=== PATIENT | female | born 1930 | race Caucasian/White ===

== ENCOUNTER 2017-09-07 04:34 | Emergency (ER) | payer MEDICARE ==
[2016-03-17 14:30] VITALS: BMI 24.0
[~2017-09-07 04:34] MED LIST: ATIVAN1 MG PO; CATAPRES0.1 MG PO; CELEXA20 MG PO; DILANTIN100 MG PO; KEPPRA250 MG PO; METOPROLOL TAR100 M1 PO; NORVASC5 MG PO; ZANTAC150 MG PO; ZOFRAN4 MG PO
[2017-09-07 05:44] LABS: BASOPHILS 0.2 % (0-2); EOSINOPHILS 1.9 % (0-7); HEMOGLOBIN 12.3 g/dL (12-16); IMMATURE GRANULOCYTES 0.6 % (0-5); LYMPHOCYTES 33.5 % (15-50); MCH 31.5 pg (26.0-34.0); MCHC 34.2 g/dL (31.0-37.0); MCV 92.3 fL (80.0-100.0); MEAN PLATELET VOLUME 9.4 fL (7.4-10.4); NEUTROPHILS 53.8 % (40-80); PLATELET COUNT 155 10x3/uL (130-400); RDW 13.1 % (11.5-14.5); WBC 4.7 10x3/uL (4.8-10.8)
[2017-09-07 06:06] LABS: ALBUMIN 3.4 g/dL (3.4-5.0); ANION GAP 11.8 mmol/L (8-16); BILIRUBIN - TOTAL 0.11 mg/dL (0.2-1.3); CALCIUM 8.6 mg/dL (8.5-10.1); CARBON DIOXIDE 29.5 mmol/L (21.0-32.0); CREATININE - SERUM 0.8 mg/dL (0.6-1.3); PHENYTOIN (DILANTIN) 5.4 ug/mL (10.0-20.0); POTASSIUM - SERUM 4.3 mmol/L (3.5-5.1); PROTEIN - SERUM 6.8 g/dL (6.4-8.2)
== END 2017-09-07 06:18 | disposition home or self-care (01) ==
LOC: D.ER 04:34
PROVIDERS: Emergency Medicine
DX: H93.13 Tinnitus, bilateral (principal); I10 Essential (primary) hypertension; G40.909 Epilepsy, unspecified, not intractable, without status epilepticus

== ENCOUNTER 2018-10-13 21:17 | Inpatient (IN) | payer MEDICARE ==
[~2018-10-13] VITALS: Ht 152.4 cm; Wt 59.0 kg
[2018-10-13 22:28] LABS: BASOPHILS 0 % (0-2); EOSINOPHILS 0 % (0-7); HEMATOCRIT 38.7 % (36.0-48.0); HEMOGLOBIN 13.2 g/dL (12-16); IMMATURE GRANULOCYTES 0.3 % (0-5); LYMPHOCYTES 15.7 % (15-50); MCH 30.7 pg (26.0-34.0); MCHC 34.1 g/dL (31.0-37.0); MEAN PLATELET VOLUME 9.1 fL (7.4-10.4); MONOCYTES 4.4 % (2-11); NEUTROPHILS 79.6 % (40-80); RDW 13.5 % (11.5-14.5); WBC 12.6 10x3/uL (4.8-10.8)
[2018-10-13 22:42] LABS: ALBUMIN 4.2 g/dL (3.4-5.0); ALKALINE PHOSPHATASE 154 U/L (46-116); ALT (SGPT) 38 U/L (10-68); BILIRUBIN - TOTAL 0.66 mg/dL (0.2-1.3); CALC OSMOLALITY 281 mosm/kg (275-300); CALCIUM 9.4 mg/dL (8.5-10.1); CARBON DIOXIDE 25.4 mmol/L (21.0-32.0); CHLORIDE - SERUM 102 mmol/L (98-107); CREATININE - SERUM 1.1 mg/dL (0.6-1.3); GLUCOSE 116 mg/dL (74-106); POTASSIUM - SERUM 3.7 mmol/L (3.5-5.1); PROTEIN - SERUM 8.4 g/dL (6.4-8.2); SODIUM 140 mmol/L (136-145); UREA NITROGEN 19 mg/dL (7-18); eGFR NON AFRICAN AMERICAN 50 mL/min (90-120)
[2018-10-13 22:59] LABS: PLATELET COUNT 215 10x3/uL (130-400)
[2018-10-13 23:02] LABS: PHENYTOIN (DILANTIN) 3.5 ug/mL (10.0-20.0); PRO BNP 1175 pg/mL (0-450); THYROID STIMULATING HORMONE 2.01 uIU/mL (0.36-3.74); TROPONIN-I 0.024 ng/mL (0.000-0.060)
[2018-10-13 23:07] LABS: CREATINE KINASE 1570 UL (21-215)
[2018-10-13 23:09] LABS: CKMB 28.5 U/L (0.0-3.6)
[2018-10-14 01:04] VITALS: BP 120/56
--- NOTE | 2018-10-14 02:45 | NUR ---
PT RESTING IN BED. ALERT WITH SOME CONFUSION. PT STATES NO PROBLEMS AT THIS TIME. CRISTOBAL ALARM ON. CALL LIGHT IN REACH. WILL CONTINUE PLAN OF CARE.
[2018-10-14 04:34] VITALS: BP 116/61
[2018-10-14 06:22] VITALS: BP 120/56; BMI 25.4
--- NOTE | 2018-10-14 06:35 | NUR ---
PT IN BED IN LOW FOWLERS POSITION. RESPIRATIONS EVEN AND UNLABORED. VITAL SIGNS STABLE AND AFEBRILE. NO VISUAL CUES OF DISTRESS NOTED. DENIES ANY OTHER NEEDS AT THIS TIME. BED LOW, SIDE RAILS UP X2. CALL LIGHT IN REACH. WILL CONTINUE TO MONITOR.
--- NOTE | 2018-10-14 10:00 | NUR ---
BLADDER SCAN DONE WITH 25ML RESULTS PT HAD JUST VOIDED PRIOR TO SCAN
[2018-10-14 10:48] LABS: BASOPHILS 0 % (0-2); EOSINOPHILS 0.1 % (0-7); HEMATOCRIT 34.9 % (36.0-48.0); HEMOGLOBIN 11.7 g/dL (12-16); IMMATURE GRANULOCYTES 0.3 % (0-5); LYMPHOCYTES 12.5 % (15-50); MCH 30.4 pg (26.0-34.0); MCHC 33.5 g/dL (31.0-37.0); MCV 90.6 fL (80.0-100.0); MEAN PLATELET VOLUME 9.5 fL (7.4-10.4); MONOCYTES 12.9 % (2-11); NEUTROPHILS 74.2 % (40-80); PLATELET COUNT 192 10x3/uL (130-400); RBC 3.85 10x6/uL (4.00-5.40); RDW 13.6 % (11.5-14.5)
[2018-10-14 10:55] VITALS: BP 141/71
[2018-10-14 11:03] LABS: WBC 9.2 10x3/uL (4.8-10.8)
[2018-10-14 11:20] LABS: CALC OSMOLALITY 282 mosm/kg (275-300); CALCIUM 8.6 mg/dL (8.5-10.1); CARBON DIOXIDE 26.7 mmol/L (21.0-32.0); CHLORIDE - SERUM 103 mmol/L (98-107); CKMB 20.4 U/L (0.0-3.6); GLUCOSE 97 mg/dL (74-106); SODIUM 141 mmol/L (136-145); TROPONIN-I < 0.017 ng/mL (0.000-0.060); UREA NITROGEN 17 mg/dL (7-18); eGFR NON AFRICAN AMERICAN 55 mL/min (90-120)
[2018-10-14 11:23] LABS: CREATINE KINASE 1884 UL (21-215); PHENYTOIN (DILANTIN) 17.9 ug/mL (10.0-20.0)
[2018-10-14 11:26] LABS: POTASSIUM - SERUM 2.9 mmol/L (3.5-5.1)
[2018-10-14 12:00] VITALS: Ht 152.4 cm; Wt 59.0 kg
[2018-10-14 12:09] VITALS: BP 136/68
--- NOTE | 2018-10-14 19:00 | NUR ---
REPORT RECEIVED AND CARE OF PT ASSUMED. PT LYING IN LOW OLEARY'S POSITION WITH EYES CLOSED. IV IN LEFT FA PATENT WITH NS INFUSING AT 75 ML / HR. TELEMETRY IN PLACE AND READING SR AT THIS ASSESSMENT. BED ALARM IN USE FOR SAFETY.
[2018-10-14 20:20] VITALS: BP 108/50
--- NOTE | 2018-10-14 20:42 | NUR ---
HS MEDICATIONS GIVEN. WILL CONTINUE TO MONITOR FOR NEEDS.
--- NOTE | 2018-10-15 04:10 | NUR ---
PT PULLED OUT IV IN HER SLEEP. WITH CATHETER TIP INTACT. RE-SITED TO LEFT AC USING 20 GUAGE CATHETER IN ONE STICK. RE-STARTED IV FLUIDS.
--- NOTE | 2018-10-15 04:11 | NUR ---
PT BATHED AND ALL LINENS AND GOWN CHANGED DUE TO INCONTINENCE...UNABLE TO COLLECT URINE FOR UA THIS MORNING. BED ALARM IN USE. SIDE RAILS UP X2 FOR SAFETY.
--- NOTE | 2018-10-15 04:21 | NUR ---
PT ABLE TO URINATE AGAIN AND SAMPLE COLLECTED FOR ORDERED STUDIES. DELIVERED TO LAB.
[2018-10-15 05:53] VITALS: BP 132/70; BP 178/89
[2018-10-15 06:03] LABS: APPEARANCE CLEAR (CLEAR); COLOR YELLOW (YELLOW)
[2018-10-15 06:04] LABS: BILIRUBIN NEGATIVE (NEGATIVE); GLUCOSE NEGATIVE (NEGATIVE); KETONE NEGATIVE (NEGATIVE); NITRITE NEGATIVE (NEGATIVE); PROTEIN NEGATIVE (NEGATIVE); UROBILINOGEN NORMAL (NORMAL)
[2018-10-15 07:28] VITALS: BP 130/80
--- NOTE | 2018-10-15 08:45 | NUR ---
PATIENT RESTING IN BED, CONFUSED, FALL PRECAUTIONS USED. PATIENT REFUSES TO WEAR SCDS AND IS FREQUENTLY TRYING TO GET OUT OF BED.
[2018-10-15 12:03] VITALS: BP 125/74
--- NOTE | 2018-10-15 14:49 | NUR ---
IV RESITED TO LEFT AC D/T EDEMA AT RIGHT FOREARM SITE. 22G X 1 STICK
--- NOTE | 2018-10-15 19:00 | NUR ---
REPORT RECEIVED AND CARE OF PT ASSUMED. PT LYING IN LOW OLEARY'S POSITION. IV IN LEFT AC PULLED OUT AND LEAKING....CATHETER TIP INTACT. TELEMETRY IN PLACE. WILL MONITOR FOR NEEDS. BED ALARM IN USE FOR PT SAFETY.
[2018-10-15 20:00] VITALS: BP 98/65
--- NOTE | 2018-10-15 21:00 | NUR ---
HS MEDICATIONS GIVEN. ASSISTED PT TO RESTROOM. BED ALARM ACTIVATED FOR SAFETY. WILL CONTINUE TO MONITOR FOR NEEDS.
[2018-10-16 00:41] VITALS: BP 164/74
--- NOTE | 2018-10-16 04:24 | NUR ---
PT VERY CONFUSED ALL SHIFT...TALKING TO PEOPLE IN HER ROOM THAT AREN'T THERE...YELLING FOR THE ICE CREAM LADY TO COME BACK IN HER ROOM...NO CONCEPT OF TIME AT ALL...THOUGHT IT WAS EARLY EVENING ALL NIGHT. POOR SAFETY AWARENESS...NOT ASKING FOR ASSISTANCE BEFORE GETTING UP. PT HAS PULLED OUT 5 IV'S IN PAST 24 HOURS. BED ALARM IN USE. SIDE RAILS UP X2 FOR SAFETY.
[2018-10-16 05:25] VITALS: BP 143/88
[2018-10-16 06:28] LABS: CALCIUM 8.3 mg/dL (8.5-10.1); CARBON DIOXIDE 22.9 mmol/L (21.0-32.0); CHLORIDE - SERUM 105 mmol/L (98-107); GLUCOSE 86 mg/dL (74-106); SODIUM 140 mmol/L (136-145)
[2018-10-16 06:30] LABS: BASOPHILS 0.3 % (0-2); EOSINOPHILS 1.1 % (0-7); HEMATOCRIT 33.9 % (36.0-48.0); HEMOGLOBIN 11.2 g/dL (12-16); IMMATURE GRANULOCYTES 0.9 % (0-5); LYMPHOCYTES 19.9 % (15-50); MCH 29.9 pg (26.0-34.0); MCV 90.6 fL (80.0-100.0); MEAN PLATELET VOLUME 10.1 fL (7.4-10.4); MONOCYTES 15.4 % (2-11); NEUTROPHILS 62.4 % (40-80); PLATELET COUNT 188 10x3/uL (130-400); RBC 3.74 10x6/uL (4.00-5.40); RDW 13.5 % (11.5-14.5)
[2018-10-16 06:40] LABS: CALC OSMOLALITY 276 mosm/kg (275-300); CREATININE - SERUM 0.7 mg/dL (0.6-1.3); UREA NITROGEN 9 mg/dL (7-18); eGFR NON AFRICAN AMERICAN 83 mL/min (90-120)
[2018-10-16 08:30] VITALS: BP 141/65
--- NOTE | 2018-10-16 08:30 | NUR ---
AWAKE AND ALERT. ORIENTED X3. NO C/O AT THIS TIME. SOMEWHAT CONFUSED TO SITUATION. WILL MONITOR. CRISTOBAL MAT IN PLACE FOR SAFETY. LLUNGS ARE CLEAR BILATERALLY, NO COUGH NOTED. SKIN IS INTACT IWTHOUT REDNESS. IV TO RIGHT FOREARM IS PATENT WITHOUT REDNESS AT INSERTION SITE. DENIES NEEDS.
--- NOTE | 2018-10-16 10:00 | NUR ---
ATTEMPTED OOB PER SELF. CONFUSED AT THIS TIME. ORIENTED TO SELF ONLY. REPOSITIONED IN BED FOR COMFORT. CRISTOBAL MAT IN PLACE FOR SAFETY.
[2018-10-16 12:30] VITALS: BP 138/75
--- NOTE | 2018-10-16 15:00 | NUR ---
HAD A BIT OF A FIT AND THREW HER PLATE ACROSS THE ROOM. WHEN I ASKED HER WHY SHE STATED, "EVERYTHING JUST PILED UP ON ME AND I LOST IT". VERY CALM NOW AND DENIES NEEDS.
--- NOTE | 2018-10-16 18:44 | NUR ---
MARCI VAIL LEFT AT BEDSIDE. STATED SHE DIDN'T FEEL LIKE EATING RIGHT NOW. NO CHANGES NOTED. DENIES NEEDS.
--- NOTE | 2018-10-16 19:00 | NUR ---
REPORT RECEIVED AND CARE OF PT ASSUMED. PT LYING IN SUPINE POSITION WITH EYES CLOSED. IV IN RIGHT FA PATENT WITH NS INFUSING AT 25 ML / HR. TELEMETRY IN PLACE AND READING SR AT THIS ASSESSMENT. WILL MONITOR FOR NEEDS. BED ALARM IN USE AND SIDE RAILS UP X2 FOR SAFETY.
[2018-10-16 20:00] VITALS: BP 146/81
--- NOTE | 2018-10-16 20:24 | NUR ---
HS MEDICATIONS GIVEN. WILL CONTINUE TO MONITOR FOR NEEDS. BED ALARM IN USE.
--- NOTE | 2018-10-17 03:08 | NUR ---
STAND BY ASSIST TO RESTROOM. PT MORE ALERT AND ORIENTED THIS SHIFT.
[2018-10-17 04:00] VITALS: BP 136/89
--- NOTE | 2018-10-17 05:45 | NUR ---
PT MUCH LESS CONFUSED THIS AM...KNOWS WHERE SHE IS AND WHY SHE IS HERE. USING THE CALL LIGHT TO ASK FOR ASSISTANCE TO GO TO RESTROOM.
[2018-10-17 05:55] LABS: BASOPHILS 0.3 % (0-2); EOSINOPHILS 2.4 % (0-7); HEMATOCRIT 36.9 % (36.0-48.0); HEMOGLOBIN 12.1 g/dL (12-16); IMMATURE GRANULOCYTES 1.2 % (0-5); LYMPHOCYTES 26.6 % (15-50); MCH 30.2 pg (26.0-34.0); MCHC 32.8 g/dL (31.0-37.0); MEAN PLATELET VOLUME 9.5 fL (7.4-10.4); MONOCYTES 12.5 % (2-11); PLATELET COUNT 203 10x3/uL (130-400); RBC 4.01 10x6/uL (4.00-5.40); RDW 13.5 % (11.5-14.5); WBC 5.9 10x3/uL (4.8-10.8)
[2018-10-17 06:21] LABS: CALC OSMOLALITY 282 mosm/kg (275-300); CALCIUM 8.4 mg/dL (8.5-10.1); CARBON DIOXIDE 23.4 mmol/L (21.0-32.0); CHLORIDE - SERUM 106 mmol/L (98-107); CREATININE - SERUM 0.7 mg/dL (0.6-1.3); GLUCOSE 89 mg/dL (74-106); POTASSIUM - SERUM 4.4 mmol/L (3.5-5.1); SODIUM 143 mmol/L (136-145); UREA NITROGEN 9 mg/dL (7-18); eGFR NON AFRICAN AMERICAN 83 mL/min (90-120)
--- NOTE | 2018-10-17 08:11 | NUR ---
AWAKE AND ALERT. ORIENTED X3.NO C/O THIS AM. LUNGS ARE CLEAR BILATERALLY, NO COUGH NOTED. SKIN IS INTACT WITHOUT REDNESS. IV TO RIGHT FOREARM IS PATENT WITHOUT REDNESS AT INSERTION SITE. SCD'S IN PLACE. DENIES NEEDS.
--- NOTE | 2018-10-17 08:36 | NUR ---
AWAKE AND ALERT. ORIENTED X3. UP TO BR WITH ONE PERSON ASSIST. VOIDED SMALL AMOUNT OF BLOOD TINGED URINE. SKIN CARE PER SELF. LUNGS ARE CLEAR BILATERALLY, NO COUGH NOTED. SKIN IS INTACT WITHOUT REDNESS. INSERTION SITE FOR NEPHROSOTOMY TUBE HAS A CLEAN DRY DRESSING IN PLACE. SL TO RIGHT HAND PATENT WITHOUT REDNESS AT INSERTION SITE. DENIES NEEDS.
--- NOTE | 2018-10-17 09:00 | NUR ---
CONCERNED ABOUT WHERE HER PURSE IS. CALLED ER AND NOT THERE. HAD HER CALL FAMILY AND THEY HAVE HER PURSE.
[2018-10-17 09:21] VITALS: BP 155/77
--- NOTE | 2018-10-17 14:00 | NUR ---
UP TO SINK TO BRUSH TEETH AND CLEAN UP. TO BR AND VOIDED WITHOUT DIFFICULTY. SITTING UP ON SIDE OF BED EATING LUNCH. DENIES NEEDS.
[2018-10-17 14:31] VITALS: BP 127/78
--- NOTE | 2018-10-17 16:54 | MORECARE ---
CASE MANAGEMENT DISCHARGE SUMMARY PATIENT: CATERINA TABARES UNIT: [id number] ADM DATE: 10/14/18 AGE: 88 : 30 SEX: F ROOM/BED: D.2219 AUTHOR: LIDYA MENSAH PHYSICIAN: REFERRING PHYSICIAN: AMANDO BLAKE MD DATE OF SERVICE: 10/17/18 Discharge Plan Patient Name: CATERINA TABARES Facility: [facility]:[place] : 1930 Planned Disposition: Home with Home Health Anticipated Discharge Date: 10/18/18 Discharge Date: Expected LOS: 4 Initial Reviewer: [email or web address] Initial Review Date: 10/14/2018 Generated: 10/17/18 5:54 pm Comments DCP- Discharge Planning Updated by [id number]: Teresa Mahajan on 10/17/18 11:[address] CM TO PATIENT'S BEDSIDE. SHE WAS SLEEPING SOUNDLY. WILL REVISIT. DCPIA - Discharge Planning Initial Assessment Updated by [id number]: Teresa Mahajan on 10/17/18 4:53 pm * Is the patient Alert and Oriented? Yes * How many steps to enter\exit or inside your home? None * PCP Dr Blake * Pharmacy [facility] * Preadmission Environment Home Alone * ADLs Independent * Equipment Cane * Other Equipment Denies any other DME * List name and contact numbers for known caregivers / representatives who currently or will assist patient after discharge: Ubaldo Tabares- brother in law- [phone] * Verbal permission to speak to the caregivers and representatives has been obtained from the patient. No * Community resources currently utilized Other * Please name any agencies selected above. [facility] [employer] [facility] * Additional services required to return to the preadmission environment? Yes * Can the patient safely return to the preadmission environment? Yes * Has this patient been hospitalized within the prior 30 days at any hospital? No Patient Name: CATERINA TABARES Page [phone] at 8115 All edits/amendments must be made on the electronic document DICTATION DATE: 10/17/181653 PAPER WINDER: RUDY 10/17/181653 RPT#: [id number] DC DATE: STATUS: ADM IN [facility] [address] [place] [address] END OF REPORT
--- NOTE | 2018-10-17 17:07 | MORECARE ---
CASE MANAGEMENT DISCHARGE SUMMARY PATIENT: CATERINA TABARES UNIT: [id number] ADM DATE: 10/14/18 AGE: 88 : 30 SEX: F ROOM/BED: D.2219 AUTHOR: MAKENNA,DOC PHYSICIAN: REFERRING PHYSICIAN: AMANDO BLAKE MD DATE OF SERVICE: 10/17/18 Discharge Plan Patient Name: CATERINA TABARES Facility: [facility]:[place] : 1930 Planned Disposition: Home with Home Health Anticipated Discharge Date: 10/18/18 Discharge Date: Expected LOS: 4 Initial Reviewer: [email or web address] Initial Review Date: 10/14/2018 Generated: 10/17/18 6:07 pm Comments DCP- Discharge Planning Updated by [email or web address]: Teresa Mahajan on 10/17/18 4:[address] CM MET WITH THE PATIENT IN HER ROOM. SHE WAS AWAKE. PATIENT STATED SHE HAD SLEPT A NUMBER OF HOURS. CM EXPLAINED SHE MAY DISCHARGED ON THURSDAY. ADVISED THE LAST MODEL DEPARTMENT SUPERVISOR HAD ORDERED CM CONSULT FOR HOME HEALTH SERVICES. EXPLAINED CM ROLE AND H/H SERVICES. SHE IS PRESENTLY RECEIVING ASSISTANCE ON THURSDAY THRU [facility] ON AGING FOR ASSISTANCE WITH SHOPPING.SHE LIVES ALONE IN AN APARTMENT ON THE FIRST FLOOR. NO STEPS OR STAIRS TO ENTER. SHE AMBULATES WITH A CANE. DENIES ANY ADDITIONAL DME. SHE WILL HAVE TRANSPORTATION TO HOME WITH HER SISTER AND BROTHER IN LAW. HAS OTHER RESOURCES FOR TRANSPORTATION IF NEEDED. PATIENT IS NOT CERTAIN SHE NEEDS HOME HEALTH. WILL CONSIDER AND TALK TO A FRIEND WHO IS RECEIVING H/H SERVICES. CM PROVIDED HER WITH THE POC LISTING FOR H/H SERVICES. PCP- DR BLAKE CARDIOLOGY- DR BRAVO NEUROLOGY- SEES AN LAST MODEL DEPARTMENT SUPERVISOR FOR NEUROLOGY BUT HAS NEVER SEEN THE DOCTOR. WAS REFERRED BY DR OCONNOR AT HIS DEPARTURE. HAS ONLY SEEN A COUPLE OF TIMES. CM TO FOLLOW UP WITH THE PATIENT IN THE AM REGARDING HER DECISION ON HOME HEALTH. DENIES ANY OTHER NEEDS OR CONCERNS AT THIS TIME. DCP- Discharge Planning Updated by [id number]: Teresa Mahajan on 10/17/18 11:[address] CM TO PATIENT'S BEDSIDE. SHE WAS SLEEPING SOUNDLY. WILL REVISIT. DCPIA - Discharge Planning Initial Assessment Updated by [email or web address]: Teresa Mahajan on 10/17/18 4:53 pm * Is the patient Alert and Oriented? Yes * How many steps to enter\exit or inside your home? None * PCP Dr Blake * Pharmacy [facility] * Preadmission Environment Home Alone * ADLs Independent * Equipment Cane * Other Equipment Denies any other DME * List name and contact numbers for known caregivers / representatives who currently or will assist patient after discharge: Ubaldo Tabares- brother in law- [phone] * Verbal permission to speak to the caregivers and representatives has been obtained from the patient. No * Community resources currently utilized Other * Please name any agencies selected above. [facility] [employer] [facility] * Additional services required to return to the preadmission environment? Yes * Can the patient safely return to the preadmission environment? Yes * Has this patient been hospitalized within the prior 30 days at any hospital? No Last DP export: 10/17/18 3:54 p Patient Name: CATERINA TABARES Page [id number] at 1707 All edits/amendments must be made on the electronic document DICTATION DATE: 10/17/181705 CAKE WRINGER: RUDY 10/17/181705 RPT#: [id number] DC DATE: STATUS: ADM IN [facility] [address] [place] [address] END OF REPORT
[2018-10-17 17:52] VITALS: BP 114/41
--- NOTE | 2018-10-17 19:00 | NUR ---
REPORT RECEIVED AND CARE OF PT ASSUMED. PT LYING IN LOW OLEARY POSITION WITH EYES CLOSED. SCD'S IN PLACE ON BLE. IV IN RIGHT FA PATENT WITH NS INFUSING AT 25 ML / HR. BED ALARM IN USE FOR SAFETY.
--- NOTE | 2018-10-17 19:21 | NUR ---
DIDN'T WANT SUPPER AT THIS TIME. TRAY LEFT AT BEDSIDE. NO CHANGES NOTED. DENIES NEEDS.
[2018-10-17 20:00] VITALS: BP 161/75
--- NOTE | 2018-10-17 20:27 | NUR ---
HS MEDICATIONS GIVEN. WILL CONTINUE TO MONITOR FOR NEEDS.
--- NOTE | 2018-10-17 20:40 | NUR ---
ASSISTED UP TO USE RESTROOM. STAND BY ASSIST ONLY PT AMBULATES WELL ON HER OWN. WILL CONTINUE TO MONITOR FOR NEEDS.
[2018-10-18 00:02] VITALS: BP 115/79
[2018-10-18 03:00] VITALS: BP 149/53
[2018-10-18 06:01] LABS: BASOPHILS 0.3 % (0-2); EOSINOPHILS 2.1 % (0-7); LYMPHOCYTES 32.4 % (15-50); MCH 30.4 pg (26.0-34.0); MCHC 33.3 g/dL (31.0-37.0); MCV 91.1 fL (80.0-100.0); MEAN PLATELET VOLUME 9.6 fL (7.4-10.4); MONOCYTES 12.5 % (2-11); NEUTROPHILS 51.7 % (40-80); PLATELET COUNT 219 10x3/uL (130-400); RBC 3.95 10x6/uL (4.00-5.40); RDW 13.5 % (11.5-14.5); WBC 6.8 10x3/uL (4.8-10.8)
[2018-10-18 06:22] LABS: CALC OSMOLALITY 275 mosm/kg (275-300); CALCIUM 8.6 mg/dL (8.5-10.1); CARBON DIOXIDE 25.1 mmol/L (21.0-32.0); CHLORIDE - SERUM 105 mmol/L (98-107); CREATININE - SERUM 0.7 mg/dL (0.6-1.3); GLUCOSE 86 mg/dL (74-106); POTASSIUM - SERUM 4.3 mmol/L (3.5-5.1); SODIUM 140 mmol/L (136-145); UREA NITROGEN 8 mg/dL (7-18); eGFR NON AFRICAN AMERICAN 83 mL/min (90-120)
--- NOTE | 2018-10-18 07:30 | NUR ---
ASSISTED PATIENT TO BR X 1 ASSIST AT THIS TIME. NO COMPLAINTS, IV INTACT. CALL LIGHT WITHIN REACH.
[2018-10-18] MEDS ORDERED: POTASSIUM40 MEQ/15 PO (08:54)
[2018-10-18] MEDS ORDERED: K-DUR20 MEQ (08:55)
[2018-10-18] MEDS ORDERED: K-DUR20 MEQ PO (08:56)
--- NOTE | 2018-10-18 09:09 | MORECARE ---
CASE MANAGEMENT DISCHARGE SUMMARY PATIENT: CATERINA TABARES UNIT: [id number] ADM DATE: 10/14/18 AGE: 88 : 30 SEX: F ROOM/BED: D.2219 AUTHOR: MAKENNA,DOC PHYSICIAN: REFERRING PHYSICIAN: AMANDO BLAKE MD DATE OF SERVICE: 10/18/18 Discharge Plan Patient Name: CATERINA TABARES Facility: [facility]:[place] : 1930 Planned Disposition: Home with Home Health Anticipated Discharge Date: 10/18/18 Discharge Date: Expected LOS: 4 Initial Reviewer: [id number] Initial Review Date: 10/14/2018 Generated: 10/18/18 10:09 am Comments DCP- Discharge Planning Updated by [email or web address]: Teresa Mahajan on 10/17/18 4:[address] CM MET WITH THE PATIENT IN HER ROOM. SHE WAS AWAKE. PATIENT STATED SHE HAD SLEPT A NUMBER OF HOURS. CM EXPLAINED SHE MAY DISCHARGED ON THURSDAY. ADVISED THE CARBON PAPER COATING SUPERVISOR HAD ORDERED CM CONSULT FOR HOME HEALTH SERVICES. EXPLAINED CM ROLE AND H/H SERVICES. SHE IS PRESENTLY RECEIVING ASSISTANCE ON THURSDAY THRU [facility] ON AGING FOR ASSISTANCE WITH SHOPPING.SHE LIVES ALONE IN AN APARTMENT ON THE FIRST FLOOR. NO STEPS OR STAIRS TO ENTER. SHE AMBULATES WITH A CANE. DENIES ANY ADDITIONAL DME. SHE WILL HAVE TRANSPORTATION TO HOME WITH HER SISTER AND BROTHER IN LAW. HAS OTHER RESOURCES FOR TRANSPORTATION IF NEEDED. PATIENT IS NOT CERTAIN SHE NEEDS HOME HEALTH. WILL CONSIDER AND TALK TO A FRIEND WHO IS RECEIVING H/H SERVICES. CM PROVIDED HER WITH THE POC LISTING FOR H/H SERVICES. PCP- DR BLAKE CARDIOLOGY- DR BRAVO NEUROLOGY- SEES AN CARBON PAPER COATING SUPERVISOR FOR NEUROLOGY BUT HAS NEVER SEEN THE DOCTOR. WAS REFERRED BY DR OCONNOR AT HIS DEPARTURE. HAS ONLY SEEN A COUPLE OF TIMES. CM TO FOLLOW UP WITH THE PATIENT IN THE AM REGARDING HER DECISION ON HOME HEALTH. DENIES ANY OTHER NEEDS OR CONCERNS AT THIS TIME. DCP- Discharge Planning Updated by [id number]: Teresa Mahajan on 10/17/18 11:[address] CM TO PATIENT'S BEDSIDE. SHE WAS SLEEPING SOUNDLY. WILL REVISIT. DCPIA - Discharge Planning Initial Assessment Updated by [id number]: Teresasantos Mahajan on 10/17/18 4:53 pm * Is the patient Alert and Oriented? Yes * How many steps to enter\exit or inside your home? None * PCP Dr Blake * Pharmacy [facility] * Preadmission Environment Home Alone * ADLs Independent * Equipment Cane * Other Equipment Denies any other DME * List name and contact numbers for known caregivers / representatives who currently or will assist patient after discharge: Ubaldo Tabares- brother in law- [phone] * Verbal permission to speak to the caregivers and representatives has been obtained from the patient. No * Community resources currently utilized Other * Please name any agencies selected above. [facility] [employer] [facility] * Additional services required to return to the preadmission environment? Yes * Can the patient safely return to the preadmission environment? Yes * Has this patient been hospitalized within the prior 30 days at any hospital? No Coverage Notice Reviewer: [id number] [place] Keys Notice Issued Date-Time: 10/18/2018 9:00 Notice Type: IM Discharge Notice Notice Delivered To: Patient Relationship to Patient: Maintenance Helper Name: Delivery Method: HAND - Hand Delivered Estella Days: Prior Verbal Notification: Recipient Understood Notice: Yes Recipient Signature: Yes Med Rec Note Co-signed by Attending: Coverage Notice Comment: Last DP export: 10/17/18 4:07 p Patient Name: CATERINA TABARES Page [id number] at 0909 All edits/amendments must be made on the electronic document DICTATION DATE: 10/18/18908 INTEGRATED MARKETING SPECIALIST: RUDY 10/18/18908 RPT#: [id number] DC DATE: STATUS: ADM IN [facility] [address] [place] [address] END OF REPORT
--- NOTE | 2018-10-18 09:16 | MORECARE ---
CASE MANAGEMENT DISCHARGE SUMMARY PATIENT: CATERINA TABARES UNIT: [id number] ADM DATE: 10/14/18 AGE: 88 : 30 SEX: F ROOM/BED: D.2219 AUTHOR: MAKENNA,DOC PHYSICIAN: REFERRING PHYSICIAN: AMANDO BLAKE MD DATE OF SERVICE: 10/18/18 Discharge Plan Patient Name: CATERINA TABARES Facility: [facility]:[place] : 1930 Planned Disposition: Home with Home Health Anticipated Discharge Date: 10/18/18 Discharge Date: Expected LOS: 4 Initial Reviewer: [id number] Initial Review Date: 10/14/2018 Generated: 10/18/18 10:16 am Comments DCP- Discharge Planning Updated by [id number]: Teresa Mahajan on 10/17/18 4:[address] CM MET WITH THE PATIENT IN HER ROOM. SHE WAS AWAKE. PATIENT STATED SHE HAD SLEPT A NUMBER OF HOURS. CM EXPLAINED SHE MAY DISCHARGED ON THURSDAY. ADVISED THE SHAREPOINT ENGINEER HAD ORDERED CM CONSULT FOR HOME HEALTH SERVICES. EXPLAINED CM ROLE AND H/H SERVICES. SHE IS PRESENTLY RECEIVING ASSISTANCE ON THURSDAY THRU [facility] ON AGING FOR ASSISTANCE WITH SHOPPING.SHE LIVES ALONE IN AN APARTMENT ON THE FIRST FLOOR. NO STEPS OR STAIRS TO ENTER. SHE AMBULATES WITH A CANE. DENIES ANY ADDITIONAL DME. SHE WILL HAVE TRANSPORTATION TO HOME WITH HER SISTER AND BROTHER IN LAW. HAS OTHER RESOURCES FOR TRANSPORTATION IF NEEDED. PATIENT IS NOT CERTAIN SHE NEEDS HOME HEALTH. WILL CONSIDER AND TALK TO A FRIEND WHO IS RECEIVING H/H SERVICES. CM PROVIDED HER WITH THE POC LISTING FOR H/H SERVICES. PCP- DR BLAKE CARDIOLOGY- DR BRAVO NEUROLOGY- SEES AN SHAREPOINT ENGINEER FOR NEUROLOGY BUT HAS NEVER SEEN THE DOCTOR. WAS REFERRED BY DR OCONNOR AT HIS DEPARTURE. HAS ONLY SEEN A COUPLE OF TIMES. CM TO FOLLOW UP WITH THE PATIENT IN THE AM REGARDING HER DECISION ON HOME HEALTH. DENIES ANY OTHER NEEDS OR CONCERNS AT THIS TIME. DCP- Discharge Planning Updated by [id number]: Teresa Mahajan on 10/17/18 11:[address] CM TO PATIENT'S BEDSIDE. SHE WAS SLEEPING SOUNDLY. WILL REVISIT. DCPIA - Discharge Planning Initial Assessment Updated by [id number]: Teresa Mahajan on 10/17/18 4:53 pm * Is the patient Alert and Oriented? Yes * How many steps to enter\exit or inside your home? None * PCP Dr Blake * Pharmacy [facility] * Preadmission Environment Home Alone * ADLs Independent * Equipment Cane * Other Equipment Denies any other DME * List name and contact numbers for known caregivers / representatives who currently or will assist patient after discharge: Ubaldo Tabares- brother in law- [phone] * Verbal permission to speak to the caregivers and representatives has been obtained from the patient. No * Community resources currently utilized Other * Please name any agencies selected above. [facility] [employer] [facility] * Additional services required to return to the preadmission environment? Yes * Can the patient safely return to the preadmission environment? Yes * Has this patient been hospitalized within the prior 30 days at any hospital? No External Providers External Provider: [facility] Next Contact Date: Service Request Date: Service Type: Resolution: Reviewer: Comments: Coverage Notice Reviewer: [id number] [place] Keys Notice Issued Date-Time: 10/18/2018 9:00 Notice Type: IM Discharge Notice Notice Delivered To: Patient Relationship to Patient: Cost Estimating Manager Name: Delivery Method: HAND - Hand Delivered Estella Days: Prior Verbal Notification: Recipient Understood Notice: Yes Recipient Signature: Yes Med Rec Note Co-signed by Attending: Coverage Notice Comment: Last DP export: 10/18/18 8:09 a Patient Name: CATERINA TABARES Page [id number] at 0916 All edits/amendments must be made on the electronic document DICTATION DATE: 10/18/18915 HAND LEATHER TRIMMER: RUDY 10/18/18915 RPT#: [id number] DC DATE: STATUS: ADM IN [facility] [address] [place] [address] END OF REPORT
[2018-10-18 09:18] VITALS: BP 114/63
--- NOTE | 2018-10-18 09:23 | MORECARE ---
CASE MANAGEMENT DISCHARGE SUMMARY PATIENT: CATERINA TABARES UNIT: [id number] ADM DATE: 10/14/18 AGE: 88 : 30 SEX: F ROOM/BED: D.2219 AUTHOR: MAKENNADOC PHYSICIAN: REFERRING PHYSICIAN: AMANDO BLAKE MD DATE OF SERVICE: 10/18/18 Discharge Plan Patient Name: CATERINA TABARES Facility: [facility]:[place] : 1930 Planned Disposition: Home with Home Health Anticipated Discharge Date: 10/18/18 Discharge Date: Expected LOS: 4 Initial Reviewer: [email or web address] Initial Review Date: 10/14/2018 Generated: 10/18/18 10:23 am Comments DCP- Discharge Planning Updated by [id number]: Angelikalucy Keys on 10/18/18 8:[address] PATIENT DISCHARGING HOME TODAY, SHE WOULD LIKE HOME HEALTH, [facility] WITH [facility] I CALLED AND SPOKE WITH ELLIS AT [facility]. REFERRAL SENT. IMM SERVED AND EXPLAINED. HER SISTER IN LAW WILL BE THE ONE TO DRIVE HER HOME. CM WILL CONTINUE TO FOLLOW AND ASSIST WITH DC PLANNING NEEDED DCP- Discharge Planning Updated by [id number]: Teresa Mahajan on 10/17/18 4:[address] CM MET WITH THE PATIENT IN HER ROOM. SHE WAS AWAKE. PATIENT STATED SHE HAD SLEPT A NUMBER OF HOURS. CM EXPLAINED SHE MAY DISCHARGED ON THURSDAY. ADVISED THE COOK CHIEF HAD ORDERED CM CONSULT FOR HOME HEALTH SERVICES. EXPLAINED CM ROLE AND H/H SERVICES. SHE IS PRESENTLY RECEIVING ASSISTANCE ON THURSDAY THRU [facility] ON AG[facility] FOR ASSISTANCE WITH SHOPPING.SHE LIVES ALONE IN AN APARTMENT ON THE FIRST FLOOR. NO STEPS OR STAIRS TO ENTER. SHE AMBULATES WITH A CANE. DENIES ANY ADDITIONAL DME. SHE WILL HAVE TRANSPORTATION TO HOME WITH HER SISTER AND BROTHER IN LAW. HAS OTHER RESOURCES FOR TRANSPORTATION IF NEEDED. PATIENT IS NOT CERTAIN SHE NEEDS HOME HEALTH. WILL CONSIDER AND TALK TO A FRIEND WHO IS RECEIVING H/H SERVICES. CM PROVIDED HER WITH THE POC LISTING FOR H/H SERVICES. PCP- DR BLAKE CARDIOLOGY- DR BRAVO NEUROLOGY- SEES AN COOK CHIEF FOR NEUROLOGY BUT HAS NEVER SEEN THE DOCTOR. WAS REFERRED BY DR OCONNOR AT HIS DEPARTURE. HAS ONLY SEEN A COUPLE OF TIMES. CM TO FOLLOW UP WITH THE PATIENT IN THE AM REGARDING HER DECISION ON HOME HEALTH. DENIES ANY OTHER NEEDS OR CONCERNS AT THIS TIME. DCP- Discharge Planning Updated by [id number]: Teresa Mahajan on 10/17/18 11:[address] CM TO PATIENT'S BEDSIDE. SHE WAS SLEEPING SOUNDLY. WILL REVISIT. DCPIA - Discharge Planning Initial Assessment Updated by [id number]: Teresa Mahajan on 10/17/18 4:53 pm * Is the patient Alert and Oriented? Yes * How many steps to enter\exit or inside your home? None * PCP Dr Blake * Pharmacy [facility] * Preadmission Environment Home Alone * ADLs Independent * Equipment Cane * Other Equipment Denies any other DME * List name and contact numbers for known caregivers / representatives who currently or will assist patient after discharge: Ubaldo Tabares- brother in law- [phone] * Verbal permission to speak to the caregivers and representatives has been obtained from the patient. No * Community resources currently utilized Other * Please name any agencies selected above. [employer] [facility] * Additional services required to return to the preadmission environment? Yes * Can the patient safely return to the preadmission environment? Yes * Has this patient been hospitalized within the prior 30 days at any hospital? No Coverage Notice Reviewer: [id number] [place] Keys Notice Issued Date-Time: 10/18/2018 9:00 Notice Type: IM Discharge Notice Notice Delivered To: Patient Relationship to Patient: Geological Sample Tester Name: Delivery Method: HAND - Hand Delivered Estella Days: Prior Verbal Notification: Recipient Understood Notice: Yes Recipient Signature: Yes Med Rec Note Co-signed by Attending: Coverage Notice Comment: Last DP export: 10/18/18 8:16 a Patient Name: CATERINA TABARES Page [phone] at 0923 All edits/amendments must be made on the electronic document DICTATION DATE: 10/18/18922 RETURN TO FACTORY CLERK: RUDY 10/18/18922 RPT#: [id number] DC DATE: STATUS: ADM IN [facility] [address] [place] [address] END OF REPORT
--- NOTE | 2018-10-18 11:00 | NUR ---
PATIENT IV REMOVED WITH CATH TIP INTACT. ASSISTED TO SHOWER BY EMPLOYMENT ASSISTANT. CALL LIGHT WITHIN REACH.
[2018-10-18 11:52] VITALS: BP 84/58
--- NOTE | 2018-10-18 13:03 | NUR ---
PATIENT RECIEVED DC INSTRUCTIONS. VEBALIZED UNDERSTANDING. NO QUESTIONS AT THIS TIME. FAMILY AT SIDE. ESCORTED PATIENT TO PRIVATE VEHICLE WITH PERSONAL BELONGINGS VIA WC. ASSISTED PATIENT INTO VEHICLE.
--- NOTE | 2018-10-20 08:06 | MORECARE ---
CASE MANAGEMENT DISCHARGE SUMMARY PATIENT: CATERINA TABARES UNIT: [id number] ADM DATE: 10/14/18 AGE: 88 : 30 SEX: F ROOM/BED: D.2219 AUTHOR: MAKENNA,DOC PHYSICIAN: REFERRING PHYSICIAN: AMANDO BLAKE MD DATE OF SERVICE: 10/20/18 Discharge Plan Patient Name: CATERINA TABARES Facility: [facility]:[place] : 1930 Planned Disposition: Home with Home Health Anticipated Discharge Date: 10/18/18 Discharge Date: 10/18/2018 Expected LOS: 4 Initial Reviewer: [id number] Initial Review Date: 10/14/2018 Generated: 10/20/18 9:06 am Comments DCP- Discharge Planning Updated by [email or web address]: Angelika Keys on 10/18/18 8:[address] PATIENT DISCHARGING HOME TODAY, SHE WOULD LIKE HOME HEALTH, [facility] WITH [facility] I CALLED AND SPOKE WITH ELLIS AT [facility]. REFERRAL SENT. IMM SERVED AND EXPLAINED. HER SISTER IN LAW WILL BE THE ONE TO DRIVE HER HOME. CM WILL CONTINUE TO FOLLOW AND ASSIST WITH DC PLANNING NEEDED DCP- Discharge Planning Updated by [email or web address]: Teresa Mahajan on 10/17/18 4:[address] CM MET WITH THE PATIENT IN HER ROOM. SHE WAS AWAKE. PATIENT STATED SHE HAD SLEPT A NUMBER OF HOURS. CM EXPLAINED SHE MAY DISCHARGED ON THURSDAY. ADVISED THE TELESALES SPECIALIST HAD ORDERED CM CONSULT FOR HOME HEALTH SERVICES. EXPLAINED CM ROLE AND H/H SERVICES. SHE IS PRESENTLY RECEIVING ASSISTANCE ON THURSDAY THRU [facility] [facility] ON AGING FOR ASSISTANCE WITH SHOPPING.SHE LIVES ALONE IN AN APARTMENT ON THE FIRST FLOOR. NO STEPS OR STAIRS TO ENTER. SHE AMBULATES WITH A CANE. DENIES ANY ADDITIONAL DME. SHE WILL HAVE TRANSPORTATION TO HOME WITH HER SISTER AND BROTHER IN LAW. HAS OTHER RESOURCES FOR TRANSPORTATION IF NEEDED. PATIENT IS NOT CERTAIN SHE NEEDS HOME HEALTH. WILL CONSIDER AND TALK TO A FRIEND WHO IS RECEIVING H/H SERVICES. CM PROVIDED HER WITH THE POC LISTING FOR H/H SERVICES. PCP- DR BLAKE CARDIOLOGY- DR BRAVO NEUROLOGY- SEES AN TELESALES SPECIALIST FOR NEUROLOGY BUT HAS NEVER SEEN THE DOCTOR. WAS REFERRED BY DR OCONNOR AT HIS DEPARTURE. HAS ONLY SEEN A COUPLE OF TIMES. CM TO FOLLOW UP WITH THE PATIENT IN THE AM REGARDING HER DECISION ON HOME HEALTH. DENIES ANY OTHER NEEDS OR CONCERNS AT THIS TIME. DCP- Discharge Planning Updated by [email or web address]: Teresa Mahajan on 10/17/18 11:[address] CM TO PATIENT'S BEDSIDE. SHE WAS SLEEPING SOUNDLY. WILL REVISIT. DCPIA - Discharge Planning Initial Assessment Updated by [email or web address]: Teresa Mahajan on 10/17/18 4:53 pm * Is the patient Alert and Oriented? Yes * How many steps to enter\exit or inside your home? None * PCP Dr Blake * Pharmacy [facility] * Preadmission Environment Home Alone * ADLs Independent * Equipment Cane * Other Equipment Denies any other DME * List name and contact numbers for known caregivers / representatives who currently or will assist patient after discharge: Ubaldo Tabares- brother in law- [phone] * Verbal permission to speak to the caregivers and representatives has been obtained from the patient. No * Community resources currently utilized Other * Please name any agencies selected above. [facility] * Additional services required to return to the preadmission environment? Yes * Can the patient safely return to the preadmission environment? Yes * Has this patient been hospitalized within the prior 30 days at any hospital? No Coverage Notice Reviewer: [id number] Raleigh Keys Notice Issued Date-Time: 10/18/2018 9:00 Notice Type: IM Discharge Notice Notice Delivered To: Patient Relationship to Patient: Mitten Sewer Name: Delivery Method: HAND - Hand Delivered Estella Days: Prior Verbal Notification: Recipient Understood Notice: Yes Recipient Signature: Yes Med Rec Note Co-signed by Attending: Coverage Notice Comment: Last DP export: 10/18/18 8:23 a Patient Name: CATERINA TABARES Page [id number] at 0806 All edits/amendments must be made on the electronic document DICTATION DATE: 10/20/18805 NET DEVELOPER PROGRAMMER: RUDY 10/20/18805 RPT#: [id number] DC DATE:10/18/18 STATUS: DIS IN [id number] [place] [address] END OF REPORT
== END 2018-10-18 13:33 | disposition home health service (06) | DRG 100 ==
LOC: D.ER 21:17 → D.MS 23:53 → OBSVTIME 23:53 → D.ER 10-14 → D.MS 10-14
PROVIDERS: Emergency Medicine; Family Medicine; ADMIT Legal Medicine
DX: G40.909 Epilepsy, unspecified, not intractable, without status epilepticus (principal); G93.41 Metabolic encephalopathy; R41.82 Altered mental status, unspecified; R79.89 Other specified abnormal findings of blood chemistry; R33.9 Retention of urine, unspecified; E87.6 Hypokalemia; D72.829 Elevated white blood cell count, unspecified